=== PATIENT | male | born 1995 | race Hispanic/Latino ===

== ENCOUNTER 2022-09-14 16:23 | Emergency (ER) | payer BC, SELFPAY | END 2022-09-14 17:20 | disposition home or self-care (01) | LOC: ERS 16:23 | DX: R07.89 Other chest pain (principal); F17.200 Nicotine dependence, unspecified, uncomplicated | CPT/HCPCS: 71045; 93005 ==

== ENCOUNTER 2023-06-28 09:05 | Emergency (ER) | payer SELFPAY ==
[2023-06-28] MEDS ORDERED: Boostrix 0.5 ML (Tdap) VIAL (>/=7 yrs of age) ONE (10:21)
== END 2023-06-28 11:20 ==
LOC: ERS 09:05
DX: S00.31XA Abrasion of nose, initial encounter (principal); F17.200 Nicotine dependence, unspecified, uncomplicated; W50.0XXA Accidental hit or strike by another person, initial encounter
CPT/HCPCS: 70450; 70486; 72125; 90471; 90715